=== PATIENT | male | born 1945 | race Caucasian/White ===

== ENCOUNTER 2016-10-23 15:41 | Observation (INO) | payer OTHER ==
[~2016-10-23] VITALS: Ht 186.7 cm; Wt 114.6 kg
[~2016-10-23 15:41] MED LIST: ATORVASTATIN CA40 MG PO; CELECOXIB200 MG PO; CIALIS5 MG PO; CIPRO500 MG PO; DOCUSATE SODIU100 MG PO; EFFIENT10 MG PO; FAMOTIDINE20 MG PO; INVANZ1 GM IV; LISINOPRIL10 MG PO; LO-DOSE ASPIRIN81 M1 PO; LOPRESSOR25 MG PO; SIMVASTATIN20 MG PO; SPIRONOLACTONE50 MG PO
[2016-10-23] MEDS ORDERED: LISINOPRIL40 MG PO (15:56)
[2016-10-23] MEDS ORDERED: AMLODIPINE BESYL5 MG PO (15:57)
[2016-10-23 16:37] LABS: HEMATOCRIT 37.1 % (38.0-50.0); MCH 31.1 PG (29.0-34.0); MCHC 35.6 G/DL (30.0-36.0); MCV 87.5 FL (86-99); MEAN PLAT.VOLUME 10.1 uM^3 (9.0-12.4); PLATELET COUNT 146 K/uL (156-360); RBC DIS.WIDTH-CV 13.4 % (11.8-14.6); RBC DIS.WIDTH-SD 41.6 % (39-53); RED BLOOD COUNT 4.24 M/uL (4.00-5.50); WHITE BLOOD COUNT 6.7 K/uL (4.1-10.2)
[2016-10-23 16:51] LABS: CHLORIDE 111 mEq/L (99-109); POTASSIUM 3.7 mEq/L (3.7-5.4); SODIUM 140 mEq/L (136-147)
[2016-10-23 16:53] LABS: GLUCOSE 96 mg/dL (70-99)
[2016-10-23 16:54] LABS: ANION GAP 9 MEQ/L (2-14)
[2016-10-23 16:57] LABS: GFR ESTIMATE (CALCULATED) > 59 mL/min/; UREA NITROGEN (BUN) 17 mg/dL (9-23)
[2016-10-23 17:02] LABS: TROP-I INTERPRETATION NEGATIVE; TROPONIN-I 0.02 ng/mL (0.0-0.30)
[2016-10-23] MEDS ORDERED: ALEVE220 MG PO (18:10)
[2016-10-23 21:51] VITALS: BP 149/77
[2016-10-24 00:17] VITALS: BP 123/71
[2016-10-24 01:00] LABS: TROP-I INTERPRETATION NEGATIVE; TROPONIN-I 0.02 ng/mL (0.0-0.30)
[2016-10-24 04:17] VITALS: BP 128/79
[2016-10-24 07:00] VITALS: BP 143/76
[2016-10-24 07:15] LABS: TROP-I INTERPRETATION NEGATIVE; TROPONIN-I 0.01 ng/mL (0.0-0.30)
[2016-10-24] MEDS ORDERED: ISOSORBIDE DINI20 MG PO (11:08)
== END 2016-10-24 11:55 | disposition home or self-care (01) ==
LOC: EME 15:41 → 5WEST 17:26 → EDOF 17:26 → 5WEST 21:06
PROVIDERS: Emergency Medicine; Hospitalist
DX: R07.9 Chest pain, unspecified (principal); I25.10 Atherosclerotic heart disease of native coronary artery without angina pectoris; Z98.61 Coronary angioplasty status; I25.2 Old myocardial infarction; I11.9 Hypertensive heart disease without heart failure; E78.5 Hyperlipidemia, unspecified; Z82.49 Family history of ischemic heart disease and other diseases of the circulatory system; Z82.3 Family history of stroke
CPT/HCPCS: 71020; 80048; 84484; 85027; 93005; 99281; 99285; G0378

== ENCOUNTER 2017-06-18 17:56 | Observation (INO) | payer OTHER ==
[~2017-06-18] VITALS: Ht 185.4 cm; Wt 117.1 kg
[~2017-06-18 17:56] MED LIST changes: +ALEVE220 MG PO; +AMLODIPINE BESYL5 MG PO; +ISOSORBIDE DINI20 MG PO; +LISINOPRIL40 MG PO
[2017-06-18 18:32] LABS: HEMATOCRIT 29.5 % (38.0-50.0); MCH 32.1 PG (29.0-34.0); MCHC 34.9 G/DL (30.0-36.0); MCV 91.9 FL (86-99); MEAN PLAT.VOLUME 10.6 uM^3 (9.0-12.4); PLATELET COUNT 152 K/uL (156-360); RBC DIS.WIDTH-CV 12.2 % (11.8-14.6); RBC DIS.WIDTH-SD 41.3 % (39-53); WHITE BLOOD COUNT 8.7 K/uL (4.1-10.2)
[2017-06-18 18:34] LABS: RED BLOOD COUNT 3.21 M/uL (4.00-5.50)
[2017-06-18 18:43] LABS: CHLORIDE 109 mEq/L (99-109); POTASSIUM 4.5 mEq/L (3.7-5.4); SODIUM 135 mEq/L (136-147)
[2017-06-18 18:46] LABS: ANION GAP 8 MEQ/L (2-14)
[2017-06-18 18:48] LABS: GFR ESTIMATE (CALCULATED) 53 mL/min/
[2017-06-18 18:49] LABS: UREA NITROGEN (BUN) 46 mg/dL (9-23)
[2017-06-18 18:53] LABS: TROP-I INTERPRETATION NEGATIVE; TROPONIN-I 0.04 ng/mL (0.0-0.30)
[2017-06-18 18:56] LABS: GLUCOSE 410 mg/dL (70-99)
[2017-06-18] MEDS ORDERED: EFFIENT10 MG PO (20:56)
[2017-06-18] MEDS ORDERED: ISOSORBIDE DINI20 MG PO (20:56)
[2017-06-18] MEDS ORDERED: CRESTOR10 MG PO (20:56)
[2017-06-18] MEDS ORDERED: OSTEO BI-FLEX1 EAC1 PO (20:58)
[2017-06-18] MEDS ORDERED: TYLENOL EXTRA500 MG PO (20:58)
[2017-06-18] MEDS ORDERED: VITAMIN E400 UNIT PO (20:58)
[2017-06-18] MEDS ORDERED: SERTRALINE HCL50 MG PO (20:58)
[2017-06-18 22:49] LABS: POINT-OF-CARE METER ID UU14100415
[2017-06-19 00:06] VITALS: BP 113/58
[2017-06-19 01:51] LABS: TROP-I INTERPRETATION NEGATIVE; TROPONIN-I 0.03 ng/mL (0.0-0.30)
[2017-06-19 02:10] LABS: CHLORIDE 111 mEq/L (99-109); POTASSIUM 3.9 mEq/L (3.7-5.4)
[2017-06-19 02:11] LABS: SODIUM 136 mEq/L (136-147)
[2017-06-19 02:13] LABS: GLUCOSE 278 mg/dL (70-99)
[2017-06-19 02:14] LABS: ANION GAP 5 MEQ/L (2-14)
[2017-06-19 02:15] LABS: TOTAL BILIRUBIN 0.7 mg/dL (0.0-1.0)
[2017-06-19 02:16] LABS: ALKALINE PHOSPHATASE 33 IU/L (3-129)
[2017-06-19 02:17] LABS: GFR ESTIMATE (CALCULATED) > 59 mL/min/
[2017-06-19 02:18] LABS: DIRECT BILIRUBIN 0.3 mg/dL (0.0-0.3); UREA NITROGEN (BUN) 38 mg/dL (9-23)
[2017-06-19 04:22] VITALS: BP 118/60
[2017-06-19 07:31] LABS: TROP-I INTERPRETATION NEGATIVE; TROPONIN-I 0.03 ng/mL (0.0-0.30)
[2017-06-19 07:39] VITALS: BP 114/66
[2017-06-19 10:14] LABS: D-DIMER ELISA < 150.00 ng/mLDDU (<230)
[2017-06-19 10:57] VITALS: BP 117/62
== END 2017-06-19 13:40 | disposition home or self-care (01) ==
LOC: EME 17:56 → EDOF 22:39 → 5WEST 22:39 → EDOF 22:39 → ENRESERV 22:42 → 5WEST 23:53
PROVIDERS: Emergency Medicine; Hospitalist; Internal Medicine Cardiovascular Disease
DX: R07.89 Other chest pain (principal); R06.02 Shortness of breath; E11.65 Type 2 diabetes mellitus with hyperglycemia; N17.9 Acute kidney failure, unspecified; J98.11 Atelectasis; I11.9 Hypertensive heart disease without heart failure; I25.10 Atherosclerotic heart disease of native coronary artery without angina pectoris; Z95.5 Presence of coronary angioplasty implant and graft; E78.5 Hyperlipidemia, unspecified; I70.0 Atherosclerosis of aorta; I25.2 Old myocardial infarction; D69.6 Thrombocytopenia, unspecified; Z86.19 Personal history of other infectious and parasitic diseases; M19.90 Unspecified osteoarthritis, unspecified site; Z90.49 Acquired absence of other specified parts of digestive tract; Z87.891 Personal history of nicotine dependence; Z82.49 Family history of ischemic heart disease and other diseases of the circulatory system; Z82.3 Family history of stroke; E66.9 Obesity, unspecified; E26.9 Hyperaldosteronism, unspecified; N40.0 Benign prostatic hyperplasia without lower urinary tract symptoms
CPT/HCPCS: 71020; 80048; 80076; 81003; 82948; 84484; 85027; 85379; 93005; 99281; 99285; G0378; J7030